=== PATIENT | female | born 1965 | race African-American/Black ===

== ENCOUNTER → 2017-12-13 | Day surgery (SDC) | payer BC ==
[~2017-12-13] MED LIST: AMBIEN10 MG PO; BENZOCAINE/TETRACAINE/BUTAMBEN AERO SPRAY 56 GM CAN ONE; EFFEXOR XR 3737.5 MG; FENTANYL CITRATE/PF 100MCG/2 ML INJ ONE; KETAMINE HCL INJ 50 MG/ML 10 ML VIAL ONE; LIDOCAINE HCL 2% LOCAL INJ 5 ML SDV VIAL INJ ONE; MIDAZOLAM HCL 2 MG/2 ML VIAL ONE; PROMETHAZINE HC25 M1 PO; PROPOFOL IV EMULSION 10 MG/ML 50 ML VIAL ONE; [UNRECOGNIZED DRUG - OTHER]
--- NOTE | 2017-12-13 20:11 | Operative Report ---
DATE OF PROCEDURE: December 13, 2017 PROCEDURES PERFORMED 1. Esophagogastroduodenoscopy with biopsies. 2. Colonoscopy. INDICATIONS FOR ESOPHAGOGASTRODUODENOSCOPY: Upper abdominal pain, nausea. INDICATIONS FOR COLONOSCOPY: Colorectal cancer screening. MEDICATION: Patient was done under MAC. Please see anesthesiologist's note. PROCEDURE: With patient in left lateral decubitus position, the flexible fiberoptic Olympus gastroscope was introduced into the esophagus under direct visualization without any difficulty. There was some patchy erythema noted in distal esophagus. The scope was then advanced with ease into the stomach. Mucosa overlying the antrum and the body revealed some patchy intense erythema and low-grade to moderate edema and biopsies were obtained and sent to stain for H. pylori. There was an extrinsic compression noted along the posterior wall of the antrum with normal overlying mucosa. The pylorus was of normal contour and shape, was intubated with ease and the scope was advanced all the way to second portion of the duodenum. The scope was then withdrawn slowly and there was an area of nodularity that was noted at the junction of the bulb and second portion and biopsies were obtained. The scope was then withdrawn back into the stomach and retroflexed and residual Hemoclip from previous intervention was noted to be in the fundus. The scope was then straightened out. The stomach was decompressed. The scope subsequently withdrawn. Patient tolerated the procedure well. IMPRESSION 1. Distal esophagitis, mild. 2. Gastritis, biopsied. Biopsies sent to stain for Helicobacter pylori. 3. Positive extrinsic compression antrum anterior wall. 4. Focal nodularity at junction of bulb and second portion, biopsied. PLAN: Follow up histology. Initiate Protonix 40 mg 1 p.o. q.a.m. and a.c. Patient will need a CT scan of the abdomen and pelvis. Patient was then turned around. After adequate lubrication of the anal canal, flexible fiberoptic Olympus colonoscope was inserted into the rectum and advanced all the way to the cecum. It was then withdrawn slowly. Mucosa overlying the cecum, ascending colon, transverse, descending, and sigmoid colon other that for diverticular disease was grossly within normal limits. The prep was suboptimal overall, but visualization was fair. The scope was then retroflexed into the distal rectum and moderate-size internal hemorrhoids were noted, none of which was actively bleeding. The scope was then straightened out and it was subsequently withdrawn. Patient tolerated the procedure well. IMPRESSION 1. Diverticulosis. 2. Internal hemorrhoids, none actively bleeding. PLAN: Initiate high-fiber, low-fat diet. Initiate VSL #3 one p.o. daily. Anusol-HC suppositories 1 b.i.d. x10 days and p.r.n. Job#: [id number] VAS
--- OUTSIDE RECORDS SUMMARY | 2017-12-15 11:15 | XMS REPORT ---
Author Author [facility] Address Unknown Phone Unavailable Care Team Providers Care Financial Services Education Consultant Name Role Phone Unavailable Unavailable Problems This patient has no known problems. Allergies, Adverse Reactions, Alerts This patient has no known allergies or adverse reactions. Medications This patient has no known medications. Encounters Start Date/Time End Date/Time Encounter Type Admission Type Attending [facility] Facility Care Department Encounter ID 2017-11-27 00:00:00 2017-11-27 00:00:00 Outpatient [facility] [id number] 2017-10-30 00:00:00 2017-10-30 00:00:00 Outpatient [facility] [id number] 2017-10-01 00:00:00 2017-10-01 00:00:00 Outpatient [facility] [id number] 2017-10-01 00:00:00 2017-10-01 00:00:00 Outpatient [facility] [id number] 2017-09-24 09:48:34 2017-09-24 09:48:34 Outpatient [facility] [id number] 2017-09-24 08:25:13 2017-09-24 08:25:13 Outpatient [facility] [id number] 2017-09-11 00:00:00 2017-09-11 00:00:00 Outpatient [facility] [id number] 2017-08-19 00:00:00 2017-08-19 00:00:00 Outpatient [facility] [id number] 2017-07-28 12:09:23 2017-07-28 12:09:23 Outpatient [facility] [id number] 2017-07-28 10:48:12 2017-07-28 10:48:12 Outpatient [facility] [id number] 2017-07-03 00:00:00 2017-07-03 00:00:00 Outpatient [facility] [id number] 2017-06-16 00:00:00 2017-06-16 00:00:00 Outpatient [facility] [id number] 2017-06-03 00:00:00 2017-06-03 00:00:00 Outpatient [facility] [id number] 2017-06-02 00:00:00 2017-06-02 00:00:00 Outpatient [facility] [id number] 2017-05-30 00:00:00 2017-05-30 00:00:00 Outpatient [facility] [id number] 2017-05-15 00:00:00 2017-05-15 00:00:00 Outpatient [facility] [id number] 2017-05-01 00:00:00 2017-05-01 00:00:00 Outpatient [facility] [id number] 2017-04-28 08:58:58 2017-04-28 08:58:58 Outpatient [facility] [id number] 2017-04-08 00:00:00 2017-04-08 00:00:00 Outpatient [facility] [id number] 2017-03-28 13:46:28 2017-03-28 13:46:28 Outpatient [facility] [id number] 2017-03-25 00:00:00 2017-03-25 00:00:00 Outpatient [facility] [id number] 2017-03-20 08:33:46 2017-03-20 08:33:46 Outpatient [facility] [id number] 2017-03-12 00:00:00 2017-03-12 00:00:00 Outpatient [facility] [id number] 2017-03-11 00:00:00 2017-03-11 00:00:00 Outpatient [facility] [id number] 2017-02-12 09:47:54 2017-02-12 09:47:54 Outpatient [facility] [id number] 2017-02-06 00:00:00 2017-02-06 00:00:00 Outpatient [facility] [id number] 2017-02-05 00:00:00 2017-02-05 00:00:00 Outpatient [facility] [id number] 2017-02-03 00:00:00 2017-02-03 00:00:00 Outpatient [facility] [id number] 2017-01-29 09:45:52 2017-01-29 09:45:52 Outpatient [facility] [id number] 2017-01-22 00:00:00 2017-01-22 00:00:00 Outpatient [facility] [id number] 2017-01-06 09:48:32 2017-01-06 09:48:32 Outpatient [facility] [id number] 2016-12-31 14:37:19 2016-12-31 14:37:19 Outpatient [facility] [id number] 2016-12-31 11:26:42 2016-12-31 11:26:42 Outpatient [facility] [id number] 2016-12-31 09:24:45 2016-12-31 09:24:45 Outpatient [facility] [id number] 2016-12-18 15:15:08 2016-12-18 15:15:08 Outpatient [facility] [id number] 2016-12-18 13:57:31 2016-12-18 13:57:31 Outpatient [facility] [id number] 2016-12-17 00:00:00 2016-12-17 00:00:00 Outpatient [facility] [id number] 2016-12-09 00:00:00 2016-12-09 00:00:00 Outpatient [facility] [id number] 2016-12-02 10:22:51 2016-12-02 10:22:51 Outpatient [facility] [id number] 2016-11-27 08:29:23 2016-11-27 08:29:23 Outpatient [facility] [id number] 2016-11-27 00:00:00 2016-11-27 00:00:00 Outpatient [facility] [id number] 2016-11-25 11:34:06 2016-11-25 11:34:06 Outpatient [facility] [id number] 2016-11-25 00:00:00 2016-11-25 00:00:00 Outpatient [facility] [id number] 2016-11-21 14:20:49 2016-11-21 14:20:49 Outpatient [facility] [id number] 2016-11-21 00:00:00 2016-11-21 00:00:00 Outpatient [facility] [id number] 2016-11-18 00:00:00 2016-11-18 00:00:00 Outpatient [facility] [id number] 2016-11-13 00:00:00 2016-11-13 00:00:00 Outpatient [facility] [id number] 2016-10-31 00:00:00 2016-10-31 00:00:00 Outpatient [facility] [id number] 2016-10-08 15:35:17 2016-10-08 15:35:17 Outpatient [facility] [id number] 2016-09-16 09:55:36 2016-09-16 09:55:36 Outpatient [facility] [id number] 2016-09-04 00:00:00 2016-09-04 00:00:00 Outpatient [facility] [id number] 2016-08-23 08:01:23 2016-08-23 08:01:23 Outpatient [facility] [id number] 2016-08-01 08:46:26 2016-08-01 08:46:26 Outpatient [facility] [id number] 2016-07-25 08:41:40 2016-07-25 08:41:40 Outpatient [facility] [id number] 2016-07-25 00:00:00 2016-07-25 00:00:00 Outpatient [facility] [id number] 2016-07-16 16:45:50 2016-07-16 16:45:50 Outpatient [facility] [id number] 2016-07-16 15:04:49 2016-07-16 15:04:49 Outpatient [facility] [id number]
== END | disposition home or self-care (01) ==
LOC: OR 14:41
PROVIDERS: ATTEND Internal Medicine Gastroenterology
DX: Z12.11 Encounter for screening for malignant neoplasm of colon (principal); R10.13 Epigastric pain; K59.09 Other constipation; Z86.010 Personal history of colon polyps; K21.9 Gastro-esophageal reflux disease without esophagitis; F41.9 Anxiety disorder, unspecified; F32.9 Major depressive disorder, single episode, unspecified; K20.9 Esophagitis, unspecified; K29.70 Gastritis, unspecified, without bleeding; K31.89 Other diseases of stomach and duodenum; K57.30 Diverticulosis of large intestine without perforation or abscess without bleeding; K64.8 Other hemorrhoids; Z01.810 Encounter for preprocedural cardiovascular examination
CPT/HCPCS: 43239; 45378; 93005; J2001; J2250

== ENCOUNTER → 2017-12-25 | Outpatient (CLI) | payer BC ==
[~2017-12-25] MED LIST changes: -BENZOCAINE/TETRACAINE/BUTAMBEN AERO SPRAY 56 GM CAN ONE; -FENTANYL CITRATE/PF 100MCG/2 ML INJ ONE; -KETAMINE HCL INJ 50 MG/ML 10 ML VIAL ONE; -LIDOCAINE HCL 2% LOCAL INJ 5 ML SDV VIAL INJ ONE; -MIDAZOLAM HCL 2 MG/2 ML VIAL ONE; -PROPOFOL IV EMULSION 10 MG/ML 50 ML VIAL ONE
--- NOTE | 2017-12-30 08:00 | Diagnostic Imaging Report ---
PROCEDURE: BONE DXA DUAL ENERGY COMPARISON:None. INDICATIONS:OSTEOPORSIS SCREENING FINDINGS:Evaluation of the left hip and lumbar spine was performed utilizing DEXA Hologic bone densitometer. The study is technically adequate. The patient does not have any known previous non-traumatic fractures or other risk factors. Left hip total bone mineral density: 0.931 gm/cm2, T-score is -0.6, Z-score is -0.2. Lumbar spine total bone mineral density: 1.145 gm/cm2, T-score is 0.0, Z-score is 1.0. Impression: 1. Normal bone mineral density of the left hip, fracture risk is not increased. 2. Normal bone mineral density of the lumbar spine, fracture risk is not increased. The patient's fracture risk is compared to an age-matched control. Medical evaluation for secondary causes of low bone mineral density may be appropriate. Correlate clinically for the necessity and timing of the next bone mineral density study. National Osteoporosis Foundation recommendations: Initial therapy to reduce fracture risk in postmenopausal women with -BMD t-scores below -2.0 by central DXA with no risk factors -BMD t-scores below -1.5 by central CXA with one or more risk factors (first deg relative with hip fracture, prior personal fracture, low body weight, smoking) -A prior vertebral or hip fracture AACE n(Clinical Endocrinology) recommends treating the following: Postmenopausal women who have osteoporosis as diagnosed by fragility fractures or t-score -2.5 or below. Postmenopausal women who have risk factors (including hx of hip fracture, low body weight, smoking, risk of falling, high bone turnover, advancing age) and borderline low BMD T-scores of -1.5 or below Adequate intake of calcium (at least 1200mg/day) and vitamin D (400-800IU/day). Regular weight bearing and muscle-strengthening exercises Avoid smoking and excessive alcohol Charlie Frausto D.O. Dictated by: Charlie Frausto D.O. on 12/30/2017 at 8:09 Electronically approved by: Charlie Frausto D.O. on 12/30/2017 at 8:09
--- NOTE | 2018-01-07 08:46 | Diagnostic Imaging Report ---
#[id number] - MGSCRBIL #BILATERAL DIGITAL SCREENING MAMMOGRAM WITH CAD: 12/25/2017 CLINICAL: Routine screening. Comparison is made to exams dated: 11/21/2016 mammogram, 07/20/2015 mammogram, 04/04/2014 mammogram and 03/23/2014 mammogram - [facility]. Current study contains 4 films. There are scattered fibroglandular elements in both breasts. Current study was also evaluated with a Computer Aided Detection (CAD) system. There are benign vascular calcifications in both breasts. There also is a benign calcification in the left breast. No significant masses, calcifications, or other findings are seen in either breast. There has been no significant interval change. IMPRESSION: BENIGN There is no mammographic evidence of malignancy. A 1 year screening mammogram is recommended. The patient will be notified by letter of the results. Charlie rush/galo:01/06/2018 15:11:01 Community Relations Coordinator: Faviola MURPHY(R)(M), [facility] letter sent: Compared to Prior B9 Mammogram BI-RADS: 2 Benign
== END ==
LOC: MAMMO 08:07
DX: Z12.31 Encounter for screening mammogram for malignant neoplasm of breast (principal); Z13.820 Encounter for screening for osteoporosis
CPT/HCPCS: 77067; 77080

== ENCOUNTER → 2018-01-06 | Outpatient (CLI) | payer BC ==
[~2018-01-06] MED LIST changes: +IOPAMIDOL 370 MG/ML 200 ML INFUS..BTL INJ ONE; +SODIUM CHLORIDE 0.9% 50ML 50 ML ONE
--- NOTE | 2018-01-06 11:41 | Diagnostic Imaging Report ---
PROCEDURE: CT ABDOMEN AND PELVIS WITH CONTRAST TECHNIQUE: The abdomen and pelvis were scanned utilizing a multidetector helical scanner from the diaphragm to the lesser trochanter after the IV administration of 100 cc of Isovue 370 and the oral administration of water. Coronal and sagittal multiplanar reformations were obtained. COMPARISON: None. INDICATIONS: MID EPIGASTRIC PAIN FINDINGS: LOWER THORAX: Unremarkable. HEPATOBILIARY: Normal hepatic size and contour. Decreased attenuation of the hepatic parenchyma compared to the spleen, consistent with steatosis. Several lesions are noted in the liver, as follows: * 4.6 x 3.8 x 4.0 cm lesion in hepatic segment II (series 2 image 16), with peripheral nodular discontinuous enhancement. * 5.2 x 3.6 x 4.3 cm lesion in hepatic segment III (series 2 image 29), with peripheral nodular discontinuous enhancement. * 1.2 x 1.1 x 1.6 cm lesion in hepatic segment II/IV (series 2, image 20), with peripheral nodular discontinuous enhancement. * 1.4 x 1.3 x 1.3 cm relatively homogeneously enhancing lesion in hepatic segment VII (series 2 image 16). * 1.6 x 1.9 x 2.3 cm homogeneously enhancing lesion in hepatic segment V (series 2 image 26). * 0.5 and 0.7 cm hypodense lesions in hepatic segments IV (series 2, image 17), and (series 2, image 21), which are too small to characterize. Mild prominence of the central intrahepatic bile ducts, and mild dilation of the common bile duct, which measures approximately 9 mm at the naldo hepatis. No radiopaque intraluminal filling defect. Gallbladder is absent. SPLEEN: No splenomegaly. PANCREAS: Pancreatic duct at the upper limit of normal in the head, measuring 3 mm, without focal lesions. Normal enhancement. No peripancreatic fat stranding/inflammatory changes, free fluid or fluid collections. ADRENALS: No adrenal nodules. KIDNEYS/URETERS: No hydronephrosis, stones, or solid mass lesions. PELVIC ORGANS/BLADDER: Bladder is decompressed, but grossly unremarkable. No adnexal masses. PERITONEUM / RETROPERITONEUM: No free air or fluid. LYMPH NODES: No lymphadenopathy. VESSELS: Unremarkable. GI TRACT: No bowel dilation or evidence of obstruction. No free chronic inflammatory changes. Descending and sigmoid colon diverticulosis, without diverticulitis. 1.0 cm radiopaque density in the dependent portion of the stomach fundus may represent undigested pill material. BONES AND SOFT TISSUES: No acute bony abnormalities. 1.9 x 1.9 cm fat containing paramedian infraumbilical hernia (series 2 image 54 and sagittal image 59). IMPRESSION: 1. no acute abdominopelvic abnormalities. Specifically, no acute abnormal findings in the epigastric region to explain the patient's pain. 2. Multiple enhancing hepatic lesions, which are highly suggestive of hemangiomas. Recommend contrast enhanced MRI, abdomen for full characterization. 3. Hepatic steatosis. 4. Mild prominence of the central intrahepatic bile duct and mild prominence of the common bile duct, likely reflecting post cholecystectomy status. This may be further assessed with MRCP, if clinically indicated. Leo Britt M.D. Dictated by: Leo Britt M.D. on 01/06/2018 at 11:51 Electronically approved by: Leo Britt M.D. on 01/06/2018 at 11:51
== END ==
LOC: CT 07:52
PROVIDERS: ATTEND Internal Medicine Gastroenterology
DX: R10.13 Epigastric pain (principal)
CPT/HCPCS: 74177; Q9967